=== PATIENT | male | born 1980 | race Caucasian/White ===

== ENCOUNTER → 2019-05-17 17:50 | Outpatient (CLI) | payer MEDICAID | END | disposition home or self-care (01) | LOC: D.RAD 17:50 | PROVIDERS: ATTEND Nurse Practitioner | DX: M25.521 Pain in right elbow (principal); M54.5 Low back pain ==

== ENCOUNTER 2019-09-03 15:31 | Emergency (ER) | payer MEDICAID ==
[~2019-09-03] VITALS: Ht 177.8 cm; Wt 85.0 kg
[2019-09-03 15:33] VITALS: Ht 177.8 cm; Wt 85.0 kg
[2019-09-03] MEDS ORDERED: BUPRENORPHIN-N1 EACH SL (15:33)
[2019-09-03 16:06] LABS: BASOPHILS 0.1 % (0-2); EOSINOPHILS 1.1 % (0-7); HEMATOCRIT 42.5 % (42.0-54.0); HEMOGLOBIN 14.2 g/dL (13.5-17.5); IMMATURE GRANULOCYTES 0.1 % (0-5); LYMPHOCYTES 32.8 % (15-50); MCH 29.1 pg (26.0-34.0); MCHC 33.4 g/dL (31.0-37.0); MCV 87.1 fL (80.0-100.0); MEAN PLATELET VOLUME 8.9 fL (7.4-10.4); MONOCYTES 11.3 % (2-11); NEUTROPHILS 54.6 % (40-80); PLATELET COUNT 227 10x3/uL (130-400); RBC 4.88 10x6/uL (4.20-6.10); RDW 14.3 % (11.5-14.5); WBC 7.1 10x3/uL (4.8-10.8)
[2019-09-03 16:27] LABS: ANION GAP 7.5 mmol/L (8-16); CALCIUM 8.5 mg/dL (8.5-10.1); CREATININE - SERUM 1.2 mg/dL (0.6-1.3); POTASSIUM - SERUM 3.5 mmol/L (3.5-5.1)
[2019-09-03 16:30] LABS: ALBUMIN 3.6 g/dL (3.4-5.0); BILIRUBIN - TOTAL 0.86 mg/dL (0.2-1.3); MAGNESIUM - SERUM 2.2 mg/dL (1.8-2.4)
[2019-09-03 17:29] LABS: BILIRUBIN NEGATIVE (NEGATIVE); GLUCOSE NEGATIVE (NEGATIVE); KETONE NEGATIVE (NEGATIVE); NITRITE NEGATIVE (NEGATIVE); UROBILINOGEN NORMAL (NORMAL)
[2019-09-03 17:42] LABS: UDS - AMPHET POSITIVE QUAL (NEGATIVE); UDS - BARB NEGATIVE QUAL (NEGATIVE); UDS - BENZO NEGATIVE QUAL (NEGATIVE); UDS - COCAINE NEGATIVE QUAL (NEGATIVE); UDS - OPIATE NEGATIVE QUAL (NEGATIVE); UDS - PCP NEGATIVE QUAL (NEGATIVE); UDS - THC NEGATIVE QUAL (NEGATIVE)
[2019-09-03] MEDS ORDERED: VENTOLIN HFA [SP8 GM INH (18:05)
[2019-09-03] MEDS ORDERED: LEVOFLOXACIN500 MG PO (18:05)
[2019-09-03 19:07] VITALS: BP 118/68
== END 2019-09-03 19:07 | disposition home or self-care (01) ==
LOC: D.ER 15:31
PROVIDERS: Family Medicine
DX: J18.1 Lobar pneumonia, unspecified organism (principal); F15.10 Other stimulant abuse, uncomplicated; R41.0 Disorientation, unspecified

== ENCOUNTER 2019-10-01 09:13 | Emergency (ER) | payer MEDICAID ==
[~2019-10-01] VITALS: Ht 177.8 cm; Wt 84.1 kg
[~2019-10-01 09:13] MED LIST: BUPRENORPHIN-N1 EACH SL; LEVOFLOXACIN500 MG PO; VENTOLIN HFA [SP8 GM INH
[2019-10-01 09:32] VITALS: Ht 177.8 cm; Wt 84.1 kg
[2019-10-01 10:04] LABS: BASOPHILS 0.2 % (0-2); EOSINOPHILS 1.5 % (0-7); HEMATOCRIT 41.9 % (42.0-54.0); HEMOGLOBIN 13.6 g/dL (13.5-17.5); IMMATURE GRANULOCYTES 0.2 % (0-5); LYMPHOCYTES 45.2 % (15-50); MCH 28.8 pg (26.0-34.0); MCHC 32.5 g/dL (31.0-37.0); MCV 88.6 fL (80.0-100.0); MEAN PLATELET VOLUME 8.7 fL (7.4-10.4); MONOCYTES 10.2 % (2-11); NEUTROPHILS 42.7 % (40-80); PLATELET COUNT 248 10x3/uL (130-400); RBC 4.73 10x6/uL (4.20-6.10); RDW 14.3 % (11.5-14.5); WBC 6.2 10x3/uL (4.8-10.8)
[2019-10-01 10:08] LABS: BILIRUBIN NEGATIVE (NEGATIVE); GLUCOSE NEGATIVE (NEGATIVE); KETONE NEGATIVE (NEGATIVE); NITRITE NEGATIVE (NEGATIVE); UROBILINOGEN NORMAL (NORMAL)
[2019-10-01 10:10] LABS: RED CELLS - URINE 0-5 /hpf (0-5); WHITE CELLS - URINE 0-5 /hpf (NEGATIVE)
[2019-10-01 10:11] LABS: BACTERIA FEW /hpf (NEGATIVE); EPITHELIAL CELLS 0-5 /hpf (0-5)
[2019-10-01 10:14] LABS: CALC OSMOLALITY 278 mosm/kg (275-300); CARBON DIOXIDE 33.6 mmol/L (21.0-32.0); CHLORIDE - SERUM 105 mmol/L (98-107); GLUCOSE 92 mg/dL (74-106); POTASSIUM - SERUM 4.4 mmol/L (3.5-5.1); SODIUM 141 mmol/L (136-145); UREA NITROGEN 8 mg/dL (7-18); eGFR NON AFRICAN AMERICAN 88 mL/min (90-120)
[2019-10-01 10:22] LABS: ALBUMIN 3.5 g/dL (3.4-5.0); ALKALINE PHOSPHATASE 95 U/L (30-120); ALT (SGPT) 153 U/L (10-68); BILIRUBIN - TOTAL 0.52 mg/dL (0.2-1.3); PROTEIN - SERUM 6.8 g/dL (6.4-8.2)
[2019-10-01] MEDS ORDERED: KEFLEX500 MG PO (11:15)
[2019-10-01] MEDS ORDERED: MACROBID100 MG PO (11:15)
[2019-10-01 11:51] VITALS: BP 116/63
== END 2019-10-01 11:51 | disposition home or self-care (01) ==
LOC: D.ER 09:13
PROVIDERS: Family Medicine
DX: R30.0 Dysuria (principal); R30.9 Painful micturition, unspecified; N39.0 Urinary tract infection, site not specified